=== PATIENT | male | born 1985 | race Caucasian/White ===

== ENCOUNTER 2021-11-23 11:45 | Emergency (ER) | payer BC, SELFPAY ==
[2021-11-23 11:52] VITALS: BP 112/80; PULSE 76; RESP 16; TEMP 36.9; O2SAT 100
--- NOTE | 2021-11-23 12:05 | ED.URI ---
HPI - URI/Sore Throat General Chief Complaint: Upper Respiratory Infection Stated Complaint: return to work note Time Seen by Provider: 11/23/21 11:55 Source: patient Mode of arrival: ambulatory Limitations: no limitations History of Present Illness HPI Narrative: Patient presents today complaining of frontal headache, nasal congestion, and fatigue with exertion. He was diagnosed with COVID-19 and today is day 5. He presents today requesting a note to return to work. He is supposed to return to work tonight. Denies cough, shortness of breath, chest pain. He is negative Tylenol, DayQuil, and NyQuil with some relief. He works at the [email or web address]. He has not been vaccinated for COVID-19 Related Data Home Medications Medication Instructions Recorded Confirmed No Home Medications 03/31/19 11/23/21 Allergies Allergy/AdvReac Type Severity Reaction Status Date / Time No Known Allergies Allergy Verified 11/23/21 11:53 Review of Systems Review of Systems: CONSTITUTIONAL: Denies body aches, fever, chills, or sweats.+ Fatigue EYES: Denies visual changes, redness, or discharge. ENT: Denies rhinorrhea, sore throat, or otalgia.+ Congestion CARDIOVASCULAR: Denies chest pain, palpitations, or edema. RESPIRATORY: Denies cough or dyspnea. GASTROINTESTINAL: Denies abdominal pain, nausea, vomiting, or diarrhea. GENITOURINARY: Denies dysuria or hematuria. SKIN: Denies rash, itching, or wounds. MUSCULOSKELETAL: Denies back pain, joint pain, or myalgia. NEUROLOGIC: Denies numbness, tingling, or weakness.+ Frontal headache PSYCH: Denies depression or anxiety. PMFSH Social History Social History Gender identity (if verbalized by the patient): Male Comments At time of signature, I have reviewed and agree with nursing past medical, surgical, social and family history unless otherwise noted. Please see nursing chart for further information. There is no relevant family history pertinent to the presenting complaint Exam Narrative: GENERAL: Well-appearing, well-nourished, and in no acute distress. HEAD: Normocephalic, atraumatic. EYES: EOMI. No redness or drainage. Conjunctivae normal. ENT: Mucous membranes pink and moist. Nares clear. No rhinorrhea. TMs normal bilaterally. Throat normal. Uvula midline. NECK: Normal AROM. Supple. No lymphadenopathy. CHEST: No respiratory distress. Clear to auscultation. HEART: Regular rate and rhythm. No murmur appreciated. Normal peripheral pulses. EXTREMITIES: Normal range of motion. No edema. SKIN: Warm, dry, no rash. Capillary refill normal. Normal skin turgor. NEURO: No focal deficits. Alert and oriented x3. Gait steady. PSYCH: Normal affect. No signs of depression or anxiety. Course Course Level of Care: Express Care Visit Vital Signs Vital signs: Vital Signs Temperature 98.5 F 11/23/21 11:52 Pulse Rate 76 11/23/21 11:52 Respiratory Rate 16 11/23/21 11:52 Blood Pressure 112/80 11/23/21 11:52 Pulse Oximetry 100 11/23/21 11:52 Oxygen Delivery Room Air 11/23/21 11:52 Temperature 98.5 F 11/23/21 11:52 Pulse Rate 76 11/23/21 11:52 Respiratory Rate 16 11/23/21 11:52 Blood Pressure 112/80 11/23/21 11:52 Pulse Oximetry 100 11/23/21 11:52 Oxygen Delivery Room Air 11/23/21 11:52 Reviewed MDM - URI/Sore Throat Differential Diagnosis Differential diagnosis: Likely viral infection and other (COVID-19) Critical Care Time Critical Care Time Critical Care Time: No Discharge Plan Discharge Clinical Impression: COVID-19 Patient Disposition: Home, Self-Care Condition: Stable Instructions: COVID-19 (Coronavirus Disease 2019) (ED) Additional Instructions: You may return to work after you have quarantined 5 total days, then wear a mask for 5 days as outlined by the CDC guidelines. Continue to take [id number] medication as needed at home for your symptoms. Go to
== END 2021-11-23 12:13 | disposition home or self-care (01) ==
PROVIDERS: Emergency Provider Nurse Practitioner
DX: U07.1 COVID-19 (principal); Z28.310 Unvaccinated for COVID-19
CPT/HCPCS: 99211; G0463